=== PATIENT | female | born 1980 | race Two or more races ===

== ENCOUNTER → 2020-03-07 | Outpatient (CLI) | payer OTHER ==
--- NOTE | 2020-03-07 09:54 | RAD ---
MRI of right shoulder without contrast dated 03/07/2020. No comparison available. CLINICAL INDICATION: Right shoulder pain. Decreased range of motion. TECHNIQUE: Routine multiplanar multisequence MR imaging performed. FINDINGS: Intermediate T2 signal within the supraspinatus and infraspinous portions the rotator cuff. No full-t hickness tear or cuff retraction. There is some hypointense signal within the tendon substance near t he supraspinatus footplate. The subscapularis is intact. Mild hypertrophic change of the AC joint. No significant undersurface spurring. No significant subacr omial/subdeltoid bursal fluid collection. Long head biceps tendon is intact. Extra articular portion courses within the bicipital groove. Bicep s anchor intact. Evaluation of the glenoid labrum is limited due to motion on the axial sequences. Th ere is no definite labral tear or para labral cyst. No glenohumeral joint effusion or loose body. Suprascapular and spinoglenoid notches are clear. No segment muscle edema or muscle atrophy. IMPRESSION: 1. Mild rotator cuff tendinopathy with no evidence of full-thickness tear. There is some hypointense signal within the supraspinatus tendon footplate that could be related to calcific tendinosis. 2. Grossly intact biceps labral complex. 3. Mild AC joint arthropathy. Electronically signed by: Jay Reynaga MD (03/07/2020 9:52 AM) [id number]
== END ==
LOC: MRI 09:18
PROVIDERS: ATTEND Orthopaedic Surgery
DX: S46.911A Strain of unspecified muscle, fascia and tendon at shoulder and upper arm level, right arm, initial encounter (principal); E88.89 Other specified metabolic disorders; M19.011 Primary osteoarthritis, right shoulder; W19.XXXA Unspecified fall, initial encounter; Y93.89 Activity, other specified; Y92.89 Other specified places as the place of occurrence of the external cause; Y99.8 Other external cause status
CPT/HCPCS: 73221